=== PATIENT | female | born 2000 | race Caucasian/White ===

== ENCOUNTER 2022-04-25 17:06 | Emergency (ER) | payer OTHER, SELFPAY ==
[2022-04-25 17:07] VITALS: BP 157/103; PULSE 89; RESP 18; TEMP 35.9; O2SAT 98; BMI 46.7
--- NOTE | 2022-04-25 18:23 | EX.ED.DYSGE1 ---
HPI History of Present Illness Chief Complaint: Flank Pain Informant: patient and parent Narrative Narrative: Patient states that about 16 hours ago she started with left flank pain. It radiates between the CVA area and the lateral aspect of the abdomen. Does not go into the inguinal region or anteriorly. She has had nausea when the pain is bad but no vomiting. She is had no fevers chills sweats. She states the urine has looked pretty normal and she is not having dysuria frequency or odor. She has not seen blood. She has had kidney stones twice before. She has never needed lithotripsy or procedure. They have always passed on their own. She states this feels just like her prior kidney stones. Of note, patient would really prefer minimal work-up. She is still paying for her prior visits and CAT scans and would like to avoid that. She would like to see if she can get pain control. We did discuss this and we will do some work-up but try to limit it is much as we can as she is overall a young healthy woman. PFSH PFSH Home Medications hydrocodone-acetaminophen 5-325mg 5mg-325mg 1 tab PO Q6H PRN PRN Pain 3 days #10 TABLETS 04/25/22 [Rx Last Taken Unknown] naproxen 500 mg tablet 500 mg PO BID #14 tabs 04/25/22 [Rx Last Taken Unknown] ondansetron 4 mg disintegrating tablet 4 mg PO Q8H PRN PRN Nausea #10 tabs 04/25/22 [Rx Last Taken Unknown] tamsulosin 0.4 mg capsule (Flomax) 0.4 mg PO DAILY #7 caps 04/25/22 [Rx Last Taken Unknown] Allergy/AdvReac Type Severity Reaction Status Date / Time No Known Allergies Allergy Verified 04/25/22 17:08 Social History Smoking Status: Current every day smoker tobacco type: e-cigarettes ROS ROS ED Constitutional Constitutional ED: Denies chills or fever(s) ENT ENT ED: Denies rhinorrhea or sore throat Cardiovascular Cardiovascular: Denies palpitations Respiratory/Chest Respiratory/Chest: Denies cough or dyspnea Gastrointestinal Gastrointestinal: Reports abdominal pain and nausea; Denies constipation, diarrhea, melena or vomiting Genitourinary Genitourinary ED: Denies dysuria, hematuria or urinary frequency Musculoskeletal Musculoskeletal: Reports back pain; Denies neck pain Integumentary Denies rash Neurologic Neurologic: Denies headache(s) Endocrine Endocrinology: Denies polydipsia or polyuria Hematologic/Lymphatic Hematologic/Lymphatic: Denies easy bleeding or easy bruising Allergic/Immunologic Allergic/Immunologic ED: Denies urticaria EXAM Physical Exam Const Vital Signs: 04/25/22 17:07 04/25/22 18:22 Temperature 96.6 F L Temperature Source Temporal Pulse Rate 89 Respiratory Rate 18 Respiratory Effort Normal Non-Labored Respiratory Pattern Normal Blood Pressure 157/103 H Blood Pressure Mean 121 Pulse Ox 98 Oxygen Delivery Method Room Air Positive well nourished and well developed General Appearance ED: well developed; Negative for pallor HEENT Reports moist mucous membranes Eyes General Eye ED: Negative for pale conjunctiva or scleral icterus Neck supple Resp normal respiratory effort and clear to auscultation bilaterally Effort and Inspection: Negative for pain with movement Auscultation: Negative for rales, rhonchi or wheezes Cardio regular rate, regular rhythm and no murmurs GI normal to inspection, nondistended, normoactive bowel sounds, non-tender and non-distended Back/Spine Back/Spine Narrative: no rash General Back: CVA tenderness Extremity normal to inspection Neuro Sensorium / Orientation: alert Psych mental status grossly normal Skin no rashes or lesions noted, no wounds and skin turgor normal General Skin Exam: Negative for jaundice or pallor Lesions: No lesion noted MDM MDM MDM Narrative Medical decision making narrative: My independent interpretation of the patient's single view KUB x-ray but 3 images show no sign of acute process. I do not see any definitive stones. Primary reason for doing this was the look for a large stone that may prompt further evaluation. Final reading by radiology shows nonobstructive bowel gas pattern. Her urine was a little cloudy and had 10-25 red cells. However, no white cells. No nitrites. I think this is more consistent with stone than infection. Her symptoms overall are more consistent with stone. We discussed that the patient really does not want significant evaluation due to cost reasons. In this case I think that is a reasonable starting point. She has had stones before. This acts like a normal stone. She is not having symptoms of other diseases. Her abdomen is not tender. She does not have a fever. Rechecked the patient shows she is markedly improved after IV medicines including IV morphine. No significant sedation. Her nausea is better. She is actually drinking fluids. We will get her home with meds for pain nausea and Flomax for prescription therapy. Lab Data Attestation: I reviewed the patient's lab results. Labs: Laboratory Results - last 24 hr 04/25/22 18:25 Urine Color Yellow Urine Clarity Sl. Cloudy Urine pH 6.0 Ur Specific [place] 1.025 Urine Protein 15 H Urine Glucose (UA) Normal Urine Ketones Negative Urine Occult Blood 250 H Urine Nitrite Negative Urine Bilirubin Negative Urine Urobilinogen Normal Ur Leukocyte Esterase 100 H Urine RBC 10-25 SEEN Urine WBC 0-5 SEEN Ur Squamous Epith Cells 5-10 SEEN Urine Bacteria 2+ Urine Mucus 0 SEEN Urine Test Negative Radiography Diagnostic Testing: Clinical Impression(s) from Imaging Studies KUB X-Ray 04/25/22 18:50 IMPRESSION: Non-obstructive bowel gas pattern. Electronically Signed: Eloise Ludwig MD at 19:08 EST Reading Location ID and State: [id number] / Tel , Service support , Discharge Plan Triage Chief Complaint: Flank Pain ED Provider: Carlos Davidson Dx/Rx/DC Orders Clinical Impression: Renal colic on left side, Nausea, History of renal calculi Instructions: ED Kidney Stone w/ Colic Prescriptions: New hydrocodone-acetaminophen [hydrocodone-acetaminophen] 5-325 mg tablet 1 tab PO Q6H PRN PRN (Reason: Pain) 3 Days Qty: 10 0RF ondansetron [ondansetron] 4 mg tablet,disintegrating 4 mg PO Q8H PRN PRN (Reason: Nausea) Qty: 10 0RF naproxen 500 mg tablet 500 mg PO BID Qty: 14 0RF tamsulosin [Flomax] 0.4 mg capsule 0.4 mg PO DAILY Qty: 7 0RF Primary Care Provider: Fran Fitzpatrick Referrals: Fran Fitzpatrick DO [Primary Care Provider] - 3-5 Days if not improving Disposition Disposition: Home, Self Care
[2022-04-25 18:36] LABS: Mucous, Urine 0 SEEN /hpf (<or=2+)
[2022-04-25 18:37] LABS: Color, Urine Yellow (Yellow); Glucose, Dipstick Normal (Normal); Ketone-Dipstick Negative (Negative); Leukocyte Esterase-Dipstick 100 /ul (Negative); Nitrite-Dipstick Negative (Negative); Occult Blood-Urine 250 /ul (Negative); Protein-Dipstick 15 mg/dl (Negative); Specific Gravity, Urine 1.025 (1.002-1.030); Urine Bilirubin Dipstick Negative (Negative); Urine Clarity Sl. Cloudy (Clear); Urine Urobilinogen Normal (Normal)
[2022-04-25] MEDS: Ondansetron 4 MG/2 ML Vial IV (18:40)
[2022-04-25] MEDS: Ketorolac 15 MG/ML Vial IV (18:41)
[2022-04-25] MEDS: Morphine 4 MG/ML Syringe IV (18:41)
[2022-04-25 18:44] LABS: Red Blood Cells-Urine 10-25 SEEN /hpf (0-5)
[2022-04-25 18:45] LABS: Bacteria 2+ /hpf (None Seen); Squamous Epithelial Cells - UA 5-10 SEEN /hpf (5-10); White Blood Cells 0-5 SEEN /hpf (0-5)
[2022-04-25 18:46] LABS: Internal QC Validated? YES +Cl - CLEAR BKGD; Pregnancy, Urine Negative Negative
--- NOTE | 2022-04-25 18:50 | RAD_ITS ---
INDICATION: left flank pain EXAMINATION/TECHNIQUE: X-RAY - XR Abdomen 1 View COMPARISON: FINDINGS: BOWEL GAS PATTERN: Non-obstructive. No bowel or stomach distention. FREE AIR: Not assessed on supine views. ORGANOMEGALY: Not seen. CALCIFICATIONS: No abnormal calcifications observed. LOWER CHEST: No acute pathology. BONES AND SOFT TISSUES: No acute pathology. RAD/Abdomen Single View (Portable) IMPRESSION: Non-obstructive bowel gas pattern. Electronically Signed: Eloise Ludwig MD at 19:08 EST Reading Location ID and State: [id number] / Tel , Service support ,
== END 2022-04-25 20:33 | disposition home or self-care (01) ==
PROVIDERS: Emergency Provider Emergency Medicine; PCP Preventive Medicine Occupational Medicine; Visit Provider Emergency Medicine
DX: N23 Unspecified renal colic (principal); R11.0 Nausea; F17.290 Nicotine dependence, other tobacco product, uncomplicated
CPT/HCPCS: 74018; 81001; 81025; 96374; 96375; 99283; A4216; J2405